=== PATIENT | male | born 1955 | race Caucasian/White ===

== ENCOUNTER → 2017-10-27 07:41 | Outpatient (CLI) | payer MEDICARE | END | disposition home or self-care (01) | LOC: D.RAD 07:41 | DX: C06.9 Malignant neoplasm of mouth, unspecified (principal) ==

== ENCOUNTER 2020-04-04 06:00 | Day surgery (SDC) | payer OTHER ==
[2020-04-03 12:26] LABS: BASOPHILS 0.3 % (0-2); EOSINOPHILS 2.8 % (0-7); IMMATURE GRANULOCYTES 0.3 % (0-5); LYMPHOCYTES 27.7 % (15-50); MCH 32.4 pg (26.0-34.0); MCHC 33.3 g/dL (31.0-37.0); MCV 97.1 fL (80.0-100.0); MEAN PLATELET VOLUME 11.4 fL (7.4-10.4); MONOCYTES 6.4 % (2-11); NEUTROPHILS 62.5 % (40-80); PLATELET COUNT 165 10x3/uL (130-400); RBC 5.56 10x6/uL (4.20-6.10); RDW 13.3 % (11.5-14.5); WBC 7.5 10x3/uL (4.8-10.8)
[2020-04-03 12:27] LABS: ANION GAP 13.9 mmol/L (8-16); CALCIUM 8.4 mg/dL (8.5-10.1); CARBON DIOXIDE 28.2 mmol/L (21.0-32.0); CREATININE - SERUM 1.5 mg/dL (0.6-1.3); POTASSIUM - SERUM 5.1 mmol/L (3.5-5.1)
[~2020-04-04] VITALS: Ht 348 cm; Wt 58.5 kg
--- NOTE | ~2020-04-04 | OP ---
PATIENT NAME: MICHAEL FOX MEDICAL RECORD: [id number] :51 LOCATION:D[facility] ADMISSION DATE: SURGEON: REGINA GUTIERREZ MD DATE OF OPERATION: 04/04/2020 PREOPERATIVE DIAGNOSES: 1. Recurrent right inguinal hernia. 2. Symptomatic left inguinal hernia. POSTOPERATIVE DIAGNOSES: 1. Recurrent indirect right inguinal hernia. 2. Symptomatic indirect left inguinal hernia. 3. Left cord lipoma. PROCEDURES: 1. Open recurrent right indirect inguinal hernia repair with bilayered preperitoneal polypropylene mesh. 2. Open indirect left inguinal hernia repair with bilayered polypropylene preperitoneal mesh. 3. Excision of left cord lipoma. SURGEON: Regina Gutierrez MD DIRECTOR PRODUCT: Jose Antonio Ocampo, forest ranger technician. BLOOD LOSS: Minimal. ANESTHESIA: General. COMPLICATIONS: None. The risks, possible complications, and alternatives to the procedure were explained to the patient. He elects to proceed. The discussion specifically included, but was not limited to, bleeding requiring emergency reoperation, infection, and chronic pain. OPERATIVE COURSE: The patient was conveyed the operating room electively on 04/04/2020. General anesthesia was induced by anesthesia staff. The abdomen and genitals and upper thighs were sterilely prepped and draped. A transverse incision was accomplished in the left groin. Sharp dissection was carried down through skin and subcutaneous tissues as well as Ross fascia. The external oblique aponeurosis was then sharply cleaned of overlying connective tissue. I incised along the external oblique aponeurosis. I bluntly dissected down through the internal oblique and transverse abdominis muscles. A preperitoneal pocket was created bluntly. There was no direct component. There was an indirect hernia, which was reduced in its entirety. There was a cord lipoma. I clamped across the vascular pedicle to the cord lipoma and transected the cord lipoma distal to this. I then ligated the vascular pedicle with a [id number] 3-0 Vicryl suture. I then cut 2 ovals of polypropylene mesh. The 2 ovals were sutured on top of each other with a running 0 Surgidac. The mesh was placed in the preperitoneal space. Once I was satisfied with placement of the mesh, I allowed the muscular layers to come together. The transverse abdominis and internal oblique muscle layers were approximated in a horizontal mattress fashion utilizing a portion of OPERATIVE REPORT [id number] MICHAEL FOX the underlying mesh. The external oblique aponeurosis was closed with running #1 Vicryls. Ross's fascia was approximated with interrupted 3-0 Vicryls. The subdermis was approximated with interrupted 3-0 Vicryls. The skin was approximated with a running intracuticular 3-0 Vicryl. I then went around to the right side. A transverse incision was accomplished in the right groin cephalad to the patient's inguinal hernia scar. Sharp dissection was carried down through skin and subcutaneous tissue as well as Ross fascia. The external oblique aponeurosis was then cleaned of overlying connective tissue. I incised the external oblique aponeurosis along the direction of its fibers. I bluntly dissected down through the internal oblique and transverse abdominis muscles. A preperitoneal pocket was fashioned bluntly. An indirect hernia was reduced in its entirety. There was no direct component. No femoral component. I cut 2 ovals out of a polypropylene mesh. The 2 ovals were sutured together one on top of the other with a running 0 Surgidacs. The mesh was placed in the preperitoneal space. I allowed the muscular layers to fall together over the mesh. The internal oblique and transverse abdominis muscles were sutured together with the underlying mesh with interrupted horizontal mattress 0 Surgidacs. The external oblique aponeurosis was closed with running #1 Vicryls. Ross fascia was approximated with interrupted 3-0 Vicryls. The subdermis was approximated with interrupted 3-0 Vicryls. The skin was approximated with a running intracuticular 3-0 Vicryl. Benzoin and Steri-Strips were applied. The patient was then extubated and conveyed to post-anesthesia care unit where he was in stable condition. He will be dismissed home on a narcotic analgesic as well as Colace. TRANSINT:[id number] Voice Confirmation ID: [id number] DOCUMENT ID: [id number] REGINA GUTIERREZ MD CC: [id number] KONG [id number] DICTATION DATE: 04/05/201908 INTERNET MARKETING STRATEGIST: 04/06/20 0401 [facility] 04/04/20 [facility] [address] [place] [address]
[~2020-04-04 06:00] MED LIST: BENTYL 20 MG TA20 MG PO; RESTORIL15 MG PO; SYMBICORT 80-10.2 GM INH; VALIUM5 MG PO; ZANAFLEX4 MG PO
[2020-04-04 07:06] VITALS: BP 114/56; Ht 348 cm; Wt 58.5 kg
[2020-04-04] MEDS ORDERED: PEPCID PO (11:16)
[2020-04-04] MEDS ORDERED: Demerol IV (11:16)
--- NOTE | 2020-04-04 14:58 | NUR ---
1330-AMBULATED TO RESTROOM.UNABLE TO VOID. FLUIDS AT BEDISIDE AND ENCOURAGED. IV PATENT AT [facility].
--- NOTE | 2020-04-04 14:59 | NUR ---
1450-ABLE TO VOID WITHOUT COMPLICATIONS.VSS.DRESSING CDI.NO DISTRESS.NO N/V. REMOVED IV WITH CATH INTACT,DISPOSED INTO SHARPS,COVERED WITH GUAZE,SECURED WITH MEDIPORE TAPE.
--- NOTE | 2020-04-04 15:31 | NUR ---
1515-ESCORTED OUT VIA W/C WITH MALE FRIEND AWAITING TO DRIVE HOME.
== END 2020-04-04 15:15 | disposition home or self-care (01) ==
LOC: D.OPS 06:00 → D.PAN 08:00 → D.OPS 08:00
PROVIDERS: ATTEND Surgery
DX: K40.91 Unilateral inguinal hernia, without obstruction or gangrene, recurrent (principal); K40.90 Unilateral inguinal hernia, without obstruction or gangrene, not specified as recurrent; D17.6 Benign lipomatous neoplasm of spermatic cord; F17.200 Nicotine dependence, unspecified, uncomplicated